=== PATIENT | female | born 1970 | race Caucasian/White ===

== ENCOUNTER 2016-12-20 20:42 | Observation (INO) | payer MEDICARE, MEDICAID ==
[~2016-12-20] VITALS: Ht 170.2 cm; Wt 99.6 kg
[~2016-12-20 20:42] MED LIST: ACYCLOVIR 400M400 MG PO; ADVAIR 250/5028 PUFF IN; ADVIL200 MG PO; ALBUTEROL-200 PUFFS/ IH; ALBUTEROL2.5 MG/NEB IN; ALDACTONE 25MG25 MG NG; ASPIR-LOW81 MG PO; BENTYL10 M1 PO; BENTYL20 MG PO; CARLSON VITAM2000 IU PO; CARVEDILOL3.125 MG PO; CYMBALTA60 MG PO; DIFLUCAN 100MG100 MG PO; DOXYCYCLINE HY100 M3 PO; HUMALOG MIX 75/10 ML SC; HYDROCHLOROTH12.5 M1 PO; INVOKANA300 MG PO; KEFLEX500 M1 PO; KLONOPIN 0.5MG0.5 MG PO; KLOR-CON M1010 MEQ PO; LANTUS INS100 UNITS/ SC; LIDODERM 5% PA1 EACH TD; LISINOPRIL 10MG10 MG PO; LORTAB 10/3251 TAB PO; LORTAB 500 MG-71 TAB PO; LORTAB 7.5/3251 TAB PO; LUNESTA2 MG PO; METFORMIN500 MG PO; MINOCYCLINE 10100 MG PO; MINOCYCLINE HC100 M1 PO; MYCOSTATIN100000 U/G TP; NEURONTIN 300M300 MG PO; NEURONTIN800 MG PO; NORCO 325 MG-101 TAB PO; NORCO 325 MG-51 TAB PO; OMEPRAZOLE20 MG PO; OXYCODONE HCL10 M1 PO; OXYCODONE HYDRO10 M2 PO; PERCOCET 5/3251 EACH PO; PERCOGESIC1 TAB PO; PHENERGAN12.5 M3 PO; PHENERGAN25 M2 PO; PHENERGAN25 M3 PO; PREDNISONE 20MG20 MG PO; PREMARIN 0.3MG0.3 MG PO; PRISTIQ50 MG PO; PYRIDIUM 200MG200 MG PO; ROPINIROLE HYDRO1 MG PO; Roxicodone5 MG PO; SEROQUEL50 MG PO; SIMVASTATIN10 MG PO; SPIRIVA HA1 PUFF/INH IH; SYNTHROID0.088 MG PO; SYNTHROID0.125 M1 PO; TESSALON PERLE100 MG PO; TOPAMAX100 MG; TRADJENTA5 MG PO; TRILIPIX45 M1 PO; ULTRAM50 MG PO; VITAMIN D1000 IU; XARELTO20 MG PO; ZANAFLEX4 MG PO; ZOFRAN ODT4 MG PO
[2016-12-20 21:11] VITALS: BP 108/69
[2016-12-20 22:24] LABS: HEMOGLOBIN 13.6 g/dL (12.2-16.2); LYMPH # 2.7 K/mm3 (0.7-4.5); LYMPH % 20.3 % (10-50.0)
--- NOTE | 2016-12-20 22:32 | RADIOLOGY REPORT PS360 ---
CHEST-PORTABLE HISTORY: chest pain, dyspnea ORDERING PHYSICIAN: Ascencion Long MD PATIENT AGE: 46 years COMPARISON: 08/13/2015 FINDINGS: The cardiomediastinal silhouette and pulmonary vascularity are within normal limits. The lungs are clear without infiltrates, suspicious nodules, or pleural effusions. No acute bony abnormalities. IMPRESSION: Negative chest, no acute finding
[2016-12-20 22:35] VITALS: BP 130/80
--- NOTE | 2016-12-20 22:35 | Emergency Room Report ---
History of Present Illness Time Seen by 2118 Presenting Problem in Triage Pt arrived:Walked Presenting Problem:RIGHT SUB-PECTORAL CHEST PAIN RADIATING TO BACK. HAD ONE EPISODE OF NAUSEA AND DRY HEAVE AT THE TIME OF ONSET 1600 NOT ABLE TO LEAVE WORK UNTIL NOW. 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 Y Clinical Suspician of Infection? Y Mental Status: 1 - Regular (Normal Baseline) Sepsis Risk:Possible Sepsis Risk Have you (or family members/close friends) recently traveled outside the [place]? N If Yes, where/when: Have you had exposure to infectious disease within the past month? N TB? Other? Specify: Source patient, RN notes reviewed, RN/MD Exam Limitations no limitations Comment This is a 46-year-old female patient arriving to the emergency room with subjective fever, productive cough of green/yellow phlegm, shortness of breath, for the past 3-4 days. The patient was seen in [facility] emergency room on Wednesday, where she was diagnosed with bronchitis and she was started on a Z-Jeremy. Despite her medical treatment she continues to get worse. ALLERGIES Coded Allergies: Iodinated Contrast- Oral and IV Dye (Iodinated Contrast Media - IV Dye) (Severe, CHEST PAIN, PASSED OUT 05/22/16) clarithromycin (Severe, S-DROP IN B/P 05/22/16) nitrofurantoin (From Macrodantin) (Severe, "ORGANS SHUT OFF" 05/22/16) pseudoephedrine (From Sudafed) (Severe, X-[id number]/THROAT 05/22/16) Penicillins (Intermediate, I-HIVES, VOMITING 05/22/16) Sulfa (Sulfonamide Antibiotics) (Intermediate, I-HIVES 05/22/16) adhesive tape (Intermediate, I-HIVES, BLISTERING (PAPER TAPE) 05/22/16) codeine (Intermediate, I-HIVES 05/22/16) venlafaxine (From Effexor) (Intermediate, INCREASED HEART RATE 05/22/16) aspirin (Mild, 05/22/16) ibuprofen (Mild, 05/22/16) latex (Mild, I-RASH 12/21/16) morphine (Mild, 05/22/16) fluconazole (From DIFLUCAN) (CAUSED HER TO BREAK OUT W/HERPES AROUND HER MOUTH 05/22/16) metoclopramide (From Reglan) (Severe, JAUNDICE 05/22/16) mirtazapine (From Remeron) (Severe, JAUNDICE 05/22/16) CHOCOLATE (FOOD) (From CHOCOLATE (FOOD/DRUG)) (Mild, INCREASED IRON 05/22/16) amitriptyline (From Elavil) (Mild, NA-DIARRHEA 05/22/16) chocolate flavor (From CHOCOLATE (FOOD/DRUG)) (Mild, INCREASED IRON MAKES HER "HIGH" LIKE ON SOMETHING 05/22/16) ciprofloxacin (Mild, VOMITING 05/22/16) Home Medications Reported Medications ALBUTEROL (Albuterol 0.083% Neb) 1 NEB IN Q4HP PRN SHORTNESS OF BREATH Simvastatin 10 MG PO QHS Carvedilol (Carvedilol 3.125MG) 3.125 MG PO BID ROPINIROLE HCL (Ropinirole 1MG) 2 MG PO QHS Omeprazole (Omeprazole 20MG) 20 MG PO BID Albuterol (Albuterol-Hfa Inhaler) 2 PUFFS IH Q4-6HPRN #1 INH Levothyroxine Sod (Synthroid) 250 MCG PO DAILY Linagliptin (Tradjenta) 5 MG PO DAILY Tiotropium [place] (Spiriva) 1 PUFF IH DAILY FLUTICASONE/SALMETEROL (Advair 250-50 Diskus) 1 PUFF IN BID Potassium Chloride (Klor-Con M10) 10 MEQ PO DAILY TIZANIDINE HCL (Zanaflex) 4 MG PO QID Metformin HCL (Metformin) 500 MG PO BID Gabapentin (Neurontin) 800 MG PO QID INSULIN NPL/INSULIN LISPRO (Humalog Mix 75-25 Vial) 50 UNITS SC BID Eszopiclone (Lunesta) 2 MG PO QHS History Medical History General CAD? No Angina: No PA: No Hypertension? No Hyperlipidemia? Yes CHF? No DVT? No PE? No COPD? No Asthma? Yes Anemia? No GERD? No Gastric ulcers? No GI Bleed? No Hernia? No Thyroid Problems? Yes Hypothyroidism? Yes CVA? No Seizures? Yes Diabetes? Yes Insulin Dependent: Yes Insulin Pump: No Home FSBS? Yes Renal Insuffiency? No End Stage Renal Disease? No UTI? No Stones? No BPH? No GB Disease: No Nephritic Syndrome? No Asplenia? No Hepatitis? No Sickle Cell Disease? No Arthritis? No Migraines? No Cataracts? No Glaucoma? No MRSA? No HIV? No TB? No Anxiety? No Depression? Yes Cancer? No Site: UTERINE More? 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 Family History Family Hx Diabetes Yes CAD No Hypertension No Hyperlipidemia Yes Cancer Yes TB Yes Social History Smoking Hx Smoker: Current Every Day Smoker Tobacco: Yes Type Cigarettes Packs/day < 1 Pack Alcohol Alcohol: No Review of Systems All Other Systems Reviewed and Negative Constitutional chills, diaphoresis, fever Respiratory see HPI, cough, shortness of breath, wheezing Physical Exam Vital Signs Vital Signs Date Time Temp Pulse Resp B/P Pulse O2 O2 Flow FiO2 Ox Delivery Rate 12/21 226 18 96 12/21 225 81 12/21 225 98.4 73 18 97/41 12/21 225 96 ROOM AIR 12/21 225 98.6 81 18 92/50 96 12/21 224 98.6 81 18 92/50 96 12/210 97.6 84 18 93/65 93 ROOM AIR 12/21 0017 86 20 94/54 93 12/20 2322 83 22 90/52 91 12/20 2234 98.4 83 16 130/80 94 ROOM AIR 12/203 93 22 100/40 93 12/20 2110 99.0 93 22 108/69 96 12/20 2052 98.8 113 20 142/54 95 General Appearance normal appearance, WD/WN, moderate distress Respiratory Status Yes: respiratory distress, trachea midline, chest symmetrical, non tender chest. Lung Sounds anterior: wheezing. posterior: wheezing. bilateral: wheezing. Cardiovascular normal exam, regular rate/rhythm, no peripheral edema, no gallop, no JVD, no murmur, no rub, normal peripheral pulses Gastrointestinal normal bowel sounds, normal exam, non tender, soft, no organomegaly Extremities non-tender, normal range of motion, normal inspection Neurologic alert, see wheeler II-XII nml as tested, normal exam, oriented x 3 Mental status normal mood/affect Skin intact, normal color, warm/dry Medical Decision Making LABS/Meds/Orders Pt receiving controlled substance in ED? No Comment 22:33 - case d/w Dr Gregory, advised of patient's presentation and findings, lack of improvement to treatment given so far (outpatient as well as while in the emergency room). Dr. Gregory agreeable with hospitalization, will continue IV antibiotics, IV steroids, neb treatments every 4 hours. At time of hospitalization patient is in stable medical condition, lacking any clinical improvement. Care turned over Dr. Gregory at this time. I'll write temporary admission orders per hospital protocol. Upon patient's arrival to the floor the unit nurse will contact PCP in order to obtain full inpatient admission orders. Results/Orders Laboratory Tests 12/20/16 2339: POC Glucose 207 H 12/20/16 2200: Sodium 134 L, Potassium 3.3 L, Chloride 100, Carbon Dioxide 26, BUN 12, Creatinine 0.8, Estimated Creat Clear 141, Estimated GFR (MDRD) 78, Glucose 201 H, Calcium 8.9, Total Bilirubin 0.8, AST 22, ALT 33, Alkaline Phosphatase 103, Creatine Kinase 83, CK-MB (CK-2) Rel Index 0.6, CK and CKMB Interp < 0.5, Troponin I < 0.02, B-Natriuretic Peptide 7, Total Protein 7.6, Albumin 3.6, Globulin 4.0 H, Albumin/Globulin Ratio 0.9 L, PT 11.1, INR 1.03, APTT 28.4, D- Dimer 145, WBC 13.5 H, RBC 4.62, Hgb 13.6, Hct 39.1, MCV 84.6, RDW 13.8, Plt Count 260, MPV 8.9, Gran % 72.7, Gran # 9.8 H, Lymphocytes % 20.3, Monocytes % 6.1, Eosinophils % 0.7, Basophils % 0.3, Lymphocytes # 2.7, Monocytes # 0.8, Eosinophils # 0.1, Basophils # 0.0, PUBS MCHC 34.8, MCH 29.4 Current Medication Orders Sig/Celia Start time Last Medication Dose Route Stop Time Status Admin Levofloxacin/Dextrose 150 ML 12/21 AC IV 12/25 2229 Methylprednisolone 60 MG Q12 12/21 09 AC Sodium Succinate IV Albuterol/Ipratropium 3 ML Q4H6 12/21 0200 AC 12/21 INH 0603 Morphine Sulfate 2 MG ONCE ONE 12/21 0200 DCr IV 12/21 020 Ondansetron HCl 4 MG ONCE ONE 12/21 0200 DC IV 12/21 020 Hydrocodone Bit/ 5 MG Q6HP PRN 12/20 233 AC 12/21 Homatropine MBr PO 0350 Influenza Virus 0.5 ML PRN PRN 12/20 2329 AC Vaccine Quadrival IM Nicotine 21 MG DAILYP PRN 12/20 233 AC TD Albuterol/Ipratropium 0 .STK-MED ONE 12/21 2243 DC INH Aspirin 0 .STK-MED ONE 12/20 2134 DCr .ROUTE Ondansetron HCl 0 .STK-MED ONE 12/20 2134 DC .ROUTE Albuterol/Ipratropium 3 ML ONCE ONE 12/20 2129 DC 12/20 INH 12/20 Aspirin 324 MG ONCE ONE 12/20 2129 DCr 12/20 PO 12/20 Aspirin 0 .STK-MED ONE 12/20 2129 DCr .ROUTE Levofloxacin/Dextrose 150 ML ONCE ONE 12/20 2129 DCr 12/20 IV 12/20 Methylprednisolone 125 MG ONCE ONE 12/20 2129 DC 12/20 Sodium Succinate IV 12/20 Sodium Chloride 10 ML PRN PRN 12/20 2129 AC IV 12/21 2118 Levofloxacin/Dextrose 150 ML .STK-MED ONE 12/20 2128 DC IV Methylprednisolone 0 .STK-MED ONE 12/20 2128 DC Sodium Succinate .ROUTE Orders Procedure Date/time Status [id number] FAT/LO CHO/JACK 12/21 B Active RT Aerosol Treatment, Provide 12/21 0255 Active FINGERSTICK BLOOD SUGAR 12/20 2338 Complete Decision to admit 12/20 2233 Active RT REQUEST DUONEB 12/21 2123 Active ELECTROCARDIOGRAM REQUEST 12/20 2118 Active IV SALINE LOCK 12/20 2118 Active BUSINESS CONTINUITY PLANNER 12/20 2118 Active PARTIAL THROMBOPLASTIN TIME 12/20 2118 Complete PROTHROMBIN TIME 12/20 2118 Complete D-DIMER 12/20 2118 Complete COMPLETE METABOLIC PANEL 12/20 2118 Complete CBC WITH AUTO DIFF 12/20 2118 Complete CARDIAC ENZYMES 12/20 2118 Complete BRAIN NATRIURETIC PEPTIDE 12/20 2118 Complete ADMIT PATIENT 12/20 UNK Active 12 LEAD EKG-JUNE (INITIAL) 12/20 UNK Active PULSE OXIMETRY REQUEST 12/20 UNK Active RT REQUEST DUONEB 12/20 UNK Active VITAL SIGNS 12/20 UNK Active 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 of ischemic chgs, no ectopy, normal QRS, normal NM Comments No acute ischemic changes XRAY/CT/US XRAY/CT/US XRAY chest XR interpretation by reviewed by me Xray Results abnormal, normal heart size, normal lung inflation tremayne Comment RLL infiltrate Departure Departure Time of Disposition 2230 Disposition Still a Patient Clinical Impression Primary Impression: RLL pneumonia Qualifiers: Pneumonia type: due to unspecified organism Qualified Code: J18.1 - Lobar pneumonia, unspecified organism Condition STABLE Referrals PEDRO LORENZO (Family) ED Critical Care Critical Care No at 0810
--- NOTE | 2016-12-20 22:35 | Emergency Room Report ---
History of Present Illness Time Seen by 2118 Presenting Problem in Triage Pt arrived:Walked Presenting Problem:RIGHT SUB-PECTORAL CHEST PAIN RADIATING TO BACK. HAD ONE EPISODE OF NAUSEA AND DRY HEAVE AT THE TIME OF ONSET 1600 NOT ABLE TO LEAVE WORK UNTIL NOW. 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 Y Clinical Suspician of Infection? Y Mental Status: 1 - Regular (Normal Baseline) Sepsis Risk:Possible Sepsis Risk Have you (or family members/close friends) recently traveled outside the [place]? N If Yes, where/when: Have you had exposure to infectious disease within the past month? N TB? Other? Specify: Source patient, RN notes reviewed, RN/MD Exam Limitations no limitations Comment This is a 46-year-old female patient arriving to the emergency room with subjective fever, productive cough of green/yellow phlegm, shortness of breath, for the past 3-4 days. The patient was seen in [facility] emergency room on Wednesday, where she was diagnosed with bronchitis and she was started on a Z-Jeremy. Despite her medical treatment she continues to get worse. ALLERGIES Coded Allergies: Iodinated Contrast- Oral and IV Dye (Iodinated Contrast Media - IV Dye) (Severe, CHEST PAIN, PASSED OUT 05/22/16) clarithromycin (Severe, S-DROP IN B/P 05/22/16) nitrofurantoin (From Macrodantin) (Severe, "ORGANS SHUT OFF" 05/22/16) pseudoephedrine (From Sudafed) (Severe, M-[id number]/THROAT 05/22/16) Penicillins (Intermediate, I-HIVES, VOMITING 05/22/16) Sulfa (Sulfonamide Antibiotics) (Intermediate, I-HIVES 05/22/16) adhesive tape (Intermediate, I-HIVES, BLISTERING (PAPER TAPE) 05/22/16) codeine (Intermediate, I-HIVES 05/22/16) venlafaxine (From Effexor) (Intermediate, INCREASED HEART RATE 05/22/16) aspirin (Mild, 05/22/16) ibuprofen (Mild, 05/22/16) latex (Mild, I-RASH 12/21/16) morphine (Mild, 05/22/16) fluconazole (From DIFLUCAN) (CAUSED HER TO BREAK OUT W/HERPES AROUND HER MOUTH 05/22/16) metoclopramide (From Reglan) (Severe, JAUNDICE 05/22/16) mirtazapine (From Remeron) (Severe, JAUNDICE 05/22/16) CHOCOLATE (FOOD) (From CHOCOLATE (FOOD/DRUG)) (Mild, INCREASED IRON 05/22/16) amitriptyline (From Elavil) (Mild, NA-DIARRHEA 05/22/16) chocolate flavor (From CHOCOLATE (FOOD/DRUG)) (Mild, INCREASED IRON MAKES HER "HIGH" LIKE ON SOMETHING 05/22/16) ciprofloxacin (Mild, VOMITING 05/22/16) Home Medications Reported Medications ALBUTEROL (Albuterol 0.083% Neb) 1 NEB IN Q4HP PRN SHORTNESS OF BREATH Simvastatin 10 MG PO QHS Carvedilol (Carvedilol 3.125MG) 3.125 MG PO BID ROPINIROLE HCL (Ropinirole 1MG) 2 MG PO QHS Omeprazole (Omeprazole 20MG) 20 MG PO BID Albuterol (Albuterol-Hfa Inhaler) 2 PUFFS IH Q4-6HPRN #1 INH Levothyroxine Sod (Synthroid) 250 MCG PO DAILY Linagliptin (Tradjenta) 5 MG PO DAILY Tiotropium [place] (Spiriva) 1 PUFF IH DAILY FLUTICASONE/SALMETEROL (Advair 250-50 Diskus) 1 PUFF IN BID Potassium Chloride (Klor-Con M10) 10 MEQ PO DAILY TIZANIDINE HCL (Zanaflex) 4 MG PO QID Metformin HCL (Metformin) 500 MG PO BID Gabapentin (Neurontin) 800 MG PO QID INSULIN NPL/INSULIN LISPRO (Humalog Mix 75-25 Vial) 50 UNITS SC BID Eszopiclone (Lunesta) 2 MG PO QHS History Medical History General CAD? No Angina: No [place]: No Hypertension? No Hyperlipidemia? Yes CHF? No DVT? No PE? No COPD? No Asthma? Yes Anemia? No GERD? No Gastric ulcers? No GI Bleed? No Hernia? No Thyroid Problems? Yes Hypothyroidism? Yes CVA? No Seizures? Yes Diabetes? Yes Insulin Dependent: Yes Insulin Pump: No Home FSBS? Yes Renal Insuffiency? No End Stage Renal Disease? No UTI? No Stones? No BPH? No GB Disease: No Nephritic Syndrome? No Asplenia? No Hepatitis? No Sickle Cell Disease? No Arthritis? No Migraines? No Cataracts? No Glaucoma? No MRSA? No HIV? No TB? No Anxiety? No Depression? Yes Cancer? No Site: UTERINE More? 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 Family History Family Hx Diabetes Yes CAD No Hypertension No Hyperlipidemia Yes Cancer Yes TB Yes Social History Smoking Hx Smoker: Current Every Day Smoker Tobacco: Yes Type Cigarettes Packs/day < 1 Pack Alcohol Alcohol: No Review of Systems All Other Systems Reviewed and Negative Constitutional chills, diaphoresis, fever Respiratory see HPI, cough, shortness of breath, wheezing Physical Exam Vital Signs Vital Signs Date Time Temp Pulse Resp B/P Pulse O2 O2 Flow FiO2 Ox Delivery Rate 12/21 226 18 96 12/21 225 81 12/21 225 98.4 73 18 97/41 12/21 225 96 ROOM AIR 12/21 225 98.6 81 18 92/50 96 12/21 224 98.6 81 18 92/50 96 12/210 97.6 84 18 93/65 93 ROOM AIR 12/21 0017 86 20 94/54 93 12/20 2322 83 22 90/52 91 12/20 2234 98.4 83 16 130/80 94 ROOM AIR 12/203 93 22 100/40 93 12/20 2110 99.0 93 22 108/69 96 12/20 2052 98.8 113 20 142/54 95 General Appearance normal appearance, WD/WN, moderate distress Respiratory Status Yes: respiratory distress, trachea midline, chest symmetrical, non tender chest. Lung Sounds anterior: wheezing. posterior: wheezing. bilateral: wheezing. 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 No Comment 22:33 - case d/w Dr Gergory, advised of patient's presentation and findings, lack of improvement to treatment given so far (outpatient as well as while in the emergency room). Dr. Gregory agreeable with hospitalization, will continue IV antibiotics, IV steroids, neb treatments every 4 hours. At time of hospitalization patient is in stable medical condition, lacking any clinical improvement. Care turned over Dr. Gregory at this time. I'll write temporary admission orders per hospital protocol. Upon patient's arrival to the floor the unit nurse will contact PCP in order to obtain full inpatient admission orders. Results/Orders Laboratory Tests 12/20/16 2339: POC Glucose 207 H 12/20/16 2200: Sodium 134 L, Potassium 3.3 L, Chloride 100, Carbon Dioxide 26, BUN 12, Creatinine 0.8, Estimated Creat Clear 141, Estimated GFR (MDRD) 78, Glucose 201 H, Calcium 8.9, Total Bilirubin 0.8, AST 22, ALT 33, Alkaline Phosphatase 103, Creatine Kinase 83, CK-MB (CK-2) Rel Index 0.6, CK and CKMB Interp < 0.5, Troponin I < 0.02, B-Natriuretic Peptide 7, Total Protein 7.6, Albumin 3.6, Globulin 4.0 H, Albumin/Globulin Ratio 0.9 L, PT 11.1, INR 1.03, APTT 28.4, D- Dimer 145, WBC 13.5 H, RBC 4.62, Hgb 13.6, Hct 39.1, MCV 84.6, RDW 13.8, Plt Count 260, MPV 8.9, Gran % 72.7, Gran # 9.8 H, Lymphocytes % 20.3, Monocytes % 6.1, Eosinophils % 0.7, Basophils % 0.3, Lymphocytes # 2.7, Monocytes # 0.8, Eosinophils # 0.1, Basophils # 0.0, PUBS MCHC 34.8, MCH 29.4 Current Medication Orders Sig/Celia Start time Last Medication Dose Route Stop Time Status Admin Levofloxacin/Dextrose 150 ML 12/21 AC IV 12/25 2229 Methylprednisolone 60 MG Q12 12/21 09 AC Sodium Succinate IV Albuterol/Ipratropium 3 ML Q4H6 12/21 0200 AC 12/21 INH 0603 Morphine Sulfate 2 MG ONCE ONE 12/21 0200 DCr IV 12/21 020 Ondansetron HCl 4 MG ONCE ONE 12/21 0200 DC IV 12/21 020 Hydrocodone Bit/ 5 MG Q6HP PRN 12/20 233 AC 12/21 Homatropine MBr PO 0350 Influenza Virus 0.5 ML PRN PRN 12/20 2329 AC Vaccine Quadrival IM Nicotine 21 MG DAILYP PRN 12/20 233 AC TD Albuterol/Ipratropium 0 .STK-MED ONE 12/21 2243 DC INH Aspirin 0 .STK-MED ONE 12/20 2134 DCr .ROUTE Ondansetron HCl 0 .STK-MED ONE 12/20 2134 DC .ROUTE Albuterol/Ipratropium 3 ML ONCE ONE 12/20 2129 DC 12/20 INH 12/20 Aspirin 324 MG ONCE ONE 12/20 2129 DCr 12/20 PO 12/20 Aspirin 0 .STK-MED ONE 12/20 2129 DCr .ROUTE Levofloxacin/Dextrose 150 ML ONCE ONE 12/20 2129 DCr 12/20 IV 12/20 Methylprednisolone 125 MG ONCE ONE 12/20 2129 DC 12/20 Sodium Succinate IV 12/20 Sodium Chloride 10 ML PRN PRN 12/20 2129 AC IV 12/21 2118 Levofloxacin/Dextrose 150 ML .STK-MED ONE 12/20 2128 DC IV Methylprednisolone 0 .STK-MED ONE 12/20 2128 DC Sodium Succinate .ROUTE Orders Procedure Date/time Status [id number] FAT/LO CHO/JACK 12/21 B Active RT Aerosol Treatment, Provide 12/21 0255 Active FINGERSTICK BLOOD SUGAR 12/20 2338 Complete Decision to admit 12/20 2233 Active RT REQUEST DUONEB 12/21 2123 Active ELECTROCARDIOGRAM REQUEST 12/20 2118 Active IV SALINE LOCK 12/20 2118 Active DEVIL DOG 12/20 2118 Active PARTIAL THROMBOPLASTIN TIME 12/20 2118 Complete PROTHROMBIN TIME 12/20 2118 Complete D-DIMER 12/20 2118 Complete COMPLETE METABOLIC PANEL 12/20 2118 Complete CBC WITH AUTO DIFF 12/20 2118 Complete CARDIAC ENZYMES 12/20 2118 Complete BRAIN NATRIURETIC PEPTIDE 12/20 2118 Complete ADMIT PATIENT 12/20 UNK Active 12 LEAD EKG-JUNE (INITIAL) 12/20 UNK Active PULSE OXIMETRY REQUEST 12/20 UNK Active RT REQUEST DUONEB 12/20 UNK Active VITAL SIGNS 12/20 UNK Active STORE CLERK 12/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 of ischemic chgs, no ectopy, normal QRS, normal CA Comments No acute ischemic changes XRAY/CT/US XRAY/CT/US XRAY chest XR interpretation by reviewed by me Xray Results abnormal, normal heart size, normal lung inflation tremayne Comment RLL infiltrate Departure Departure Time of Disposition 2230 Disposition Still a Patient Clinical Impression Primary Impression: RLL pneumonia Qualifiers: Pneumonia type: due to unspecified organism Qualified Code: J18.1 - Lobar pneumonia, unspecified organism Condition STABLE Referrals P[facility] LOR[facility] (Family) ED Critical Care Critical Care No at 0810
[2016-12-20 22:50] LABS: BUN 12 mg/dL (7-18); GFR (ESTIMATED) 78 ML/MIN (59-)
[2016-12-21] VITALS (9 sets, daily range): BP systolic 93–116; BP diastolic 41–65
--- NOTE | 2016-12-21 07:29 | PHARMACY CLINIC NOTE ---
Patient Demographics Patient Demographics Admission date: 12/21/16 Date: 12/21/16 Time: 728 Allergies Coded Allergies: Iodinated Contrast- Oral and IV Dye (Iodinated Contrast Media - IV Dye) (Severe, CHEST PAIN, PASSED OUT 05/22/16) clarithromycin (Severe, S-DROP IN B/P 05/22/16) nitrofurantoin (From Macrodantin) (Severe, "ORGANS SHUT OFF" 05/22/16) pseudoephedrine (From Sudafed) (Severe, T-[id number]/THROAT 05/22/16) Penicillins (Intermediate, I-HIVES, VOMITING 05/22/16) Sulfa (Sulfonamide Antibiotics) (Intermediate, I-HIVES 05/22/16) adhesive tape (Intermediate, I-HIVES, BLISTERING (PAPER TAPE) 05/22/16) codeine (Intermediate, I-HIVES 05/22/16) venlafaxine (From Effexor) (Intermediate, INCREASED HEART RATE 05/22/16) aspirin (Mild, 05/22/16) ibuprofen (Mild, 05/22/16) latex (Mild, I-RASH 12/21/16) morphine (Mild, 05/22/16) fluconazole (From DIFLUCAN) (CAUSED HER TO BREAK OUT W/HERPES AROUND HER MOUTH 05/22/16) metoclopramide (From Reglan) (Severe, JAUNDICE 05/22/16) mirtazapine (From Remeron) (Severe, JAUNDICE 05/22/16) CHOCOLATE (FOOD) (From CHOCOLATE (FOOD/DRUG)) (Mild, INCREASED IRON 05/22/16) amitriptyline (From Elavil) (Mild, NA-DIARRHEA 05/22/16) chocolate flavor (From CHOCOLATE (FOOD/DRUG)) (Mild, INCREASED IRON MAKES HER "HIGH" LIKE ON SOMETHING 05/22/16) ciprofloxacin (Mild, VOMITING 05/22/16) HEIGHT- FT: 5 IN: 7.00 K.593 VTE General Information Labs: Laboratory Tests 12/20 2200 Coagulation PT (9.4 - 11.8 SECONDS) 11.1 INR (0.9 - 1.1) 1.03 APTT (23.6 - 34.0 SECONDS) 28.4 Hematology Hgb (12.2 - 16.2 g/dL) 13.6 Hct (37.0 - 47.0 %) 39.1 Plt Count (142 - 424 K/mm3) 260 Disclaimer The following section includes nursing documentation that has been pulled in for pharmacy review. Patient's VTE score: 4 Patient's VTE Risk: LOW RISK Clinical trial participant? No VTE prophylaxis NQF [id number] VTE prophylaxis ordered? Yes Type of prophylaxis/treatment: UMER at 0762
--- NOTE | 2016-12-21 09:14 | HISTORY AND PHYSICAL REPORT ---
Demographics: Admit date: 12/20/16 Chief complaint: sob PRIMARY DIAGNOSIS: PNEUMONIA Allergies: Coded Allergies: Iodinated Contrast- Oral and IV Dye (Iodinated Contrast Media - IV Dye) (Severe, CHEST PAIN, PASSED OUT 05/22/16) clarithromycin (Severe, S-DROP IN B/P 05/22/16) nitrofurantoin (From Macrodantin) (Severe, "ORGANS SHUT OFF" 05/22/16) pseudoephedrine (From Sudafed) (Severe, T-ZSUYOS-ROFK/THROAT 05/22/16) Penicillins (Intermediate, I-HIVES, VOMITING 05/22/16) Sulfa (Sulfonamide Antibiotics) (Intermediate, I-HIVES 05/22/16) adhesive tape (Intermediate, I-HIVES, BLISTERING (PAPER TAPE) 05/22/16) codeine (Intermediate, I-HIVES 05/22/16) venlafaxine (From Effexor) (Intermediate, INCREASED HEART RATE 05/22/16) aspirin (Mild, 05/22/16) ibuprofen (Mild, 05/22/16) latex (Mild, I-RASH 12/21/16) morphine (Mild, 05/22/16) fluconazole (From DIFLUCAN) (CAUSED HER TO BREAK OUT W/HERPES AROUND HER MOUTH 05/22/16) metoclopramide (From Reglan) (Severe, JAUNDICE 05/22/16) mirtazapine (From Remeron) (Severe, JAUNDICE 05/22/16) CHOCOLATE (FOOD) (From CHOCOLATE (FOOD/DRUG)) (Mild, INCREASED IRON 05/22/16) amitriptyline (From Elavil) (Mild, NA-DIARRHEA 05/22/16) chocolate flavor (From CHOCOLATE (FOOD/DRUG)) (Mild, INCREASED IRON MAKES HER "HIGH" LIKE ON SOMETHING 05/22/16) ciprofloxacin (Mild, VOMITING 05/22/16) History of present illness: History of present illness: this wf with progressive sob and congestion and was seen in the [facility] and placed on abx/steroids and antitussive but continued to have sx and have reduced adl and because of failed op and pt sx and pt has complicating factors of iddm and tob use was admitted with iv abx and steroids with resp treatments Past medical history: Family HX Family Hx Insignificant Yes Immunization HX DT/Tetanus 1-4 Years Ago Flu Refused Pneumonia Never Had Other 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 No Angina: No ID: No Hypertension? No Hyperlipidemia? Yes CHF? No DVT? No PE? No COPD? No Asthma? Yes Anemia? No GERD? No Gastric ulcers? No GI Bleed? No Hernia? No Thyroid Problems? Yes Hypothyroidism? Yes CVA? No Seizures? Yes Diabetes? Yes Insulin Dependent: Yes Insulin Pump: No Home FSBS? Yes Renal Insuffiency? No UTI? No Stones? No BPH? No GB Disease: No Nephritic Syndrome? No Asplenia? No Hepatitis? No Sickle Cell Disease? No Arthritis? No Migraines? No Cataracts? No Glaucoma? No MRSA? No HIV? No TB? No Anxiety? No Depression? Yes Cancer? No Site: UTERINE More? Yes Additional hx: 3 "KNOTS ON BACK" ,PHYSICAL THERAPY "HORSESHOE KIDNEY DISEASE" Past Surgical HX Previous Surgery?Y HYSTERECTOMY BOWEL SURGERY TEETH EXTRACTION LEFT KNEE LT KNEE ARTHROSCOPY SCOPE ON LEFT KNEE UGI X 3 COLONOSCOPY X 3 Colon Procedures R JAW TEETH EXTRACTED RIGHT HAND Current home meds: Reported Medications ALBUTEROL (Albuterol 0.083% Neb) 1 NEB IN Q4HP PRN SHORTNESS OF BREATH Simvastatin 10 MG PO QHS Carvedilol (Carvedilol 3.125MG) 3.125 MG PO BID ROPINIROLE HCL (Ropinirole 1MG) 2 MG PO QHS Omeprazole (Omeprazole 20MG) 20 MG PO BID Albuterol (Albuterol-Hfa Inhaler) 2 PUFFS IH Q4-6HPRN #1 INH Levothyroxine Sod (Synthroid) 250 MCG PO DAILY Linagliptin (Tradjenta) 5 MG PO DAILY Tiotropium [place] (Spiriva) 1 PUFF IH DAILY FLUTICASONE/SALMETEROL (Advair 250-50 Diskus) 1 PUFF IN BID Potassium Chloride (Klor-Con M10) 10 MEQ PO DAILY TIZANIDINE HCL (Zanaflex) 4 MG PO QID Metformin HCL (Metformin) 500 MG PO BID Gabapentin (Neurontin) 800 MG PO QID INSULIN NPL/INSULIN LISPRO (Humalog Mix 75-25 Vial) 50 UNITS SC BID Eszopiclone (Lunesta) 2 MG PO QHS Social Hx: Smoking HX Tobacco Yes Type Cigarettes Packs/day 1 1/2 - 2 PACKS Are you/the child exposed to second-hand smoke: Yes Alcohol Alcohol: No Hx of Drug Use Drug Use? No Patien't marital status is Patient's support system is good Review of systems: Constitutional see HPI, malaise, weakness. Eyes No: drainage. Ears, Nose, Mouth, Throat No ear discharge, No epistaxis, No throat swelling Respiratory see HPI, cough, shortness of breath, wheezing. Cardiovascular No chest pain, No palpitations, No syncope Gastrointestinal/Abdominal see HPI, No constipated, No diarrhea, nausea, poor appetite, poor fluid intake Genitourinary No: dysuria, frequency, hesitancy, hematuria. Musculoskeletal No: back pain, joint pain, joint swelling, neck pain. Skin No: rash. Neurological No: headache, seizure disorder. Psychiatric No: anxious. Exam: Lab data for last 24 hours: Laboratory Tests 12/20/16 2339: POC Glucose 207 H 12/20/16 2200: Sodium 134 L, Potassium 3.3 L, Chloride 100, Carbon Dioxide 26, BUN 12, Creatinine 0.8, Estimated Creat Clear 141, Estimated GFR (MDRD) 78, Glucose 201 H, Calcium 8.9, Total Bilirubin 0.8, AST 22, ALT 33, Alkaline Phosphatase 103, Creatine Kinase 83, CK-MB (CK-2) Rel Index 0.6, CK and CKMB Interp < 0.5, Troponin I < 0.02, B-Natriuretic Peptide 7, Total Protein 7.6, Albumin 3.6, Globulin 4.0 H, Albumin/Globulin Ratio 0.9 L, PT 11.1, INR 1.03, APTT 28.4, D- Dimer 145, WBC 13.5 H, RBC 4.62, Hgb 13.6, Hct 39.1, MCV 84.6, RDW 13.8, Plt Count 260, MPV 8.9, Gran % 72.7, Gran # 9.8 H, Lymphocytes % 20.3, Monocytes % 6.1, Eosinophils % 0.7, Basophils % 0.3, Lymphocytes # 2.7, Monocytes # 0.8, Eosinophils # 0.1, Basophils # 0.0, PUBS MCHC 34.8, MCH 29.4 Admission vital signs: 1ST Vital Signs Result Date Time Pulse Ox 95 12/20 2052 B/P 142/54 12/20 2052 Temp 98.8 12/20 2052 Pulse 113 12/20 2052 Resp 20 12/20 2052 O2 Delivery ROOM AIR 12/20 2234 Exam General appearance: alert, awake Eyes: anicteric, PERRLA ENT: dry mucous membranes Neck: no JVD Cardiovascular: regular rate & rhythm, murmur Respiratory: diminished breath sounds, rhonchi, wheezing ABD: soft Genitourinary: no dysuria Extremities: moves all Musculoskeletal: equal muscle strength Skin: dry 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 Diabetes 1.5, managed as type 2 2. Reactive airway disease 3. Bronchitis Plan: will check resdp panel and have pt ambulate at 0913
[2016-12-22 00:07] VITALS: BP 100/56
[2016-12-22 01:23] LABS: CORONAVIRUS 229E NOT DETECTED (NOT DETECTE); CORONAVIRUS HKU 1 NOT DETECTED (NOT DETECTE); CORONAVIRUS NL63 NOT DETECTED (NOT DETECTE); CORONAVIRUS OC43 NOT DETECTED (NOT DETECTE); RHINOVIRUS/ENTEROVIRUS NOT DETECTED (NOT DETECTE)
[2016-12-22 04:00] VITALS: BP 90/51
[2016-12-22 07:33] VITALS: BP 96/45
[2016-12-22 08:06] LABS: LYMPH # 1.5 K/mm3 (0.7-4.5); LYMPH % 12.7 % (10-50.0)
[2016-12-22] MEDS ORDERED: LEVAQUIN500 MG PO (09:36)
[2016-12-22] MEDS ORDERED: PREDNISONE 20MG20 MG PO (09:36)
--- NOTE | 2016-12-22 09:55 | DISCHARGE SUMMARY STANDARD ---
Demographics Admit date: 12/20/16 Discharge date: 12/22/16 History of present illness History of present illness this wf with progressive sob and congestion and was seen in the [facility] and placed on abx/steroids and antitussive but continued to have sx and have reduced adl and because of failed op and pt sx and pt has complicating factors of iddm and tob use was admitted with iv abx and steroids with resp treatments Hospital Course Hospital Course: iv fluids, antibotics, iv steroids, pt states doing well today. will dc home with f/u in 1 week Discharge diagnoses Problem List 1. Diabetes 1.5, managed as type 2 2. Reactive airway disease 3. Bronchitis Medications Medications: Discharge meds are as noted. Follow up Follow up in office in: 6 DAYS with: David GLASGOW,Jelani Cerna at [phone]
--- NOTE | 2016-12-22 09:55 | DISCHARGE SUMMARY STANDARD ---
Demographics Admit date: 12/20/16 Discharge date: 12/22/16 History of present illness History of present illness this wf with progressive sob and congestion and was seen in the [facility] and placed on abx/steroids and antitussive but continued to have sx and have reduced adl and because of failed op and pt sx and pt has complicating factors of iddm and tob use was admitted with iv abx and steroids with resp treatments Hospital Course Hospital Course: iv fluids, antibotics, iv steroids, pt states doing well today. will dc home with f/u in 1 week Discharge diagnoses Problem List 1. Diabetes 1.5, managed as type 2 2. Reactive airway disease 3. Bronchitis Medications Medications: Discharge meds are as noted. Follow up Follow up in office in: 6 DAYS with: David GLASGOW,Jelani Cerna at [phone]
[2016-12-22] MEDS ORDERED: NYSTATIN SU60 ML/BOT PO (09:56)
[2016-12-22 10:39] VITALS: BP 96/45
[2016-12-22 10:40] VITALS: BP 96/45
== END 2016-12-22 10:26 | disposition home or self-care (01) ==
LOC: ER 20:42 → UTC 20:50 → ER 20:50 → 2ND 22:36 → ER 22:36 → 2ND 23:08
PROVIDERS: Emergency Medicine
DX: J45.909 Unspecified asthma, uncomplicated (principal); E78.5 Hyperlipidemia, unspecified; E03.9 Hypothyroidism, unspecified; F17.210 Nicotine dependence, cigarettes, uncomplicated; E13.9 Other specified diabetes mellitus without complications; Z79.4 Long term (current) use of insulin; Z79.51 Long term (current) use of inhaled steroids; Z79.899 Other long term (current) drug therapy
CPT/HCPCS: G0378